=== PATIENT | female | born 1965 | race Caucasian/White ===

== ENCOUNTER 2018-02-05 00:51 | Outpatient (CLI) | payer MEDICARE, MEDICAID, SELFPAY ==
--- NOTE | 2018-02-05 09:00 | DI.US_ITS ---
SYMPTOMS/DIAGNOSIS: RLQ PAIN, S/P HYSTERECTOMY, R10.31 PELVIC ULTRASOUND: A transabdominal and transvaginal examination was carried out. The patient is status post hysterectomy and right oophorectomy. The left ovary measures 2.4 x 0.9 x 2 cm. The kidneys are intact. The left kidney measures 10.6 cm. The right kidney 9.5 cm. SUMMARY: The patient is status post hysterectomy. Nonvisualization of the right ovary is noted and this patient may well have had a right oophorectomy. The left ovary is normal. There is no evidence of a pelvic mass or fluid collection.
== END 2018-02-05 01:11 ==
PROVIDERS: PCP Physician Assistant Medical; Visit Provider Obstetrics & Gynecology Gynecology
DX: R10.31 Right lower quadrant pain (principal); Z90.710 Acquired absence of both cervix and uterus
CPT/HCPCS: 76830; 76856

== ENCOUNTER → 2018-05-19 12:19 | Outpatient (BNVA) | payer MEDICARE, MEDICAID, SELFPAY | PROVIDERS: PCP Physician Assistant Medical; Visit Provider Nurse Practitioner Adult Health | DX: H55.09 Other forms of nystagmus (principal); R41.3 Other amnesia | CPT/HCPCS: 99204; 99215 ==

== ENCOUNTER → 2018-06-11 08:19 | Outpatient (BNVA) | payer MEDICARE, MEDICAID, SELFPAY | PROVIDERS: PCP Physician Assistant Medical; Visit Provider Psychiatry & Neurology Neurology | DX: H55.09 Other forms of nystagmus (principal); G31.84 Mild cognitive impairment of uncertain or unknown etiology; R26.89 Other abnormalities of gait and mobility | CPT/HCPCS: 99213; 99214 ==

== ENCOUNTER 2018-06-11 09:21 | Outpatient (CLI) | payer MEDICARE, MEDICAID, SELFPAY ==
[2018-06-12 12:40] LABS: Zinc, Serum 0.81 mcg/mL (0.66-1.10)
[2018-06-15 09:23] LABS: Vitamin E, Serum 9.8 mg/L (5.5 - 17.0)
[2018-06-18 22:23] LABS: AGNA-1 Negative titer (<1:240); ANNA-1 Negative titer (<1:240); ANNA-2 Negative titer (<1:240); ANNA-3 Negative titer (<1:240); PCA-1 Negative titer (<1:240); PCA-2 Negative titer (<1:240); PCA-Tr Negative titer (<1:240); Striational (Striated Muscle) Negative titer (<1:120)
== END 2018-06-11 09:41 ==
PROVIDERS: PCP Physician Assistant Medical; Visit Provider Psychiatry & Neurology Neurology
DX: H55.09 Other forms of nystagmus (principal); T56 Toxic effect of metals; G31.84 Mild cognitive impairment of uncertain or unknown etiology; R26.89 Other abnormalities of gait and mobility
CPT/HCPCS: 36415; 86341; 99213; 99214; 83519; 83520; 84446; 84630; 86256

== ENCOUNTER 2018-07-23 09:52 | Outpatient (CLI) | payer MEDICARE, MEDICAID, SELFPAY ==
[2018-08-18 09:06] LABS: Misc Referral (MAYO) See Comments
== END 2018-07-23 10:12 ==
PROVIDERS: PCP Physician Assistant Medical; Visit Provider Psychiatry & Neurology Neurology
DX: R27.0 Ataxia, unspecified (principal); H55.09 Other forms of nystagmus
CPT/HCPCS: 36415; 81401

== ENCOUNTER → 2018-08-13 09:14 | Outpatient (BNVA) | payer MEDICARE, MEDICAID, SELFPAY | PROVIDERS: PCP Physician Assistant Medical; Visit Provider Psychiatry & Neurology Neurology | DX: H55.09 Other forms of nystagmus (principal) | CPT/HCPCS: 99213 ==

== ENCOUNTER → 2018-10-22 14:35 | Outpatient (BNVA) | payer MEDICARE, SELFPAY | PROVIDERS: PCP Physician Assistant Medical; Visit Provider Psychiatry & Neurology Neurology | DX: H55.09 Other forms of nystagmus (principal) | CPT/HCPCS: 99214 ==

== ENCOUNTER → 2018-12-22 14:00 | Outpatient (BNVA) | payer MEDICARE, MEDICAID, SELFPAY | PROVIDERS: PCP Physician Assistant Medical; Referring Provider Physician Assistant Medical; Visit Provider Psychiatry & Neurology Neurology | DX: H55.09 Other forms of nystagmus (principal); R63.4 Abnormal weight loss | CPT/HCPCS: 99213 ==

== ENCOUNTER 2019-02-26 12:37 | Day surgery (SDC) | payer MEDICARE, MEDICAID, SELFPAY ==
--- NOTE | 2019-01-12 16:47 | PDOC.ANES ---
Date of service: 01/12/19 Time of Service: 16:47 Anesthesia Note Report Anesthesia Note: I was asked to speak to Love given her recent phone conversation where she had stated to the preop nurse that she has episodes if chest pressure/heaviness that is substernal. She has this a few times a month and can not say for certain if this occurs at rest or with exertion. She does state there is no radiation, shortness of breath, diaphoresis or nausea and vomiting. These episodes seem to last for a period of minutes and then resolve. She states it is different than her GERD symptoms and that she also was recently diagnosed with COPD this Spring, although she does not have SOB or use inhalers with her COPD. She also states that she is functionally active taking long walks with dog, and frequently using stairs to access her house and did shovel lots of snow the other day with no symptoms. I confirmed this with a phone call today with Love and then spoke to her PCP, Rukhsana Manley in [facility] who advised she will see patient tomorrow and or have the patient see cardiology and report back a plan prior to her scheduled procedure this week.
--- NOTE | 2019-02-26 10:22 | HPE_ITS ---
Date of service: 02/26/19 Time of Service: 10:23 Assessment and Plan Assessment and plan (1) Preop examination: Status: Acute Assessment and plan: Pt was previously counseled regarding risks of procedure at the time of her preop visit last month. Risk of bleeding, infection, and damage to surrounding structures including bowel, bladder and blood vessels. If pt has bleeding or damage to surrounding structures she would require a laparotomy. Informed consent was obtained. Her questions were answered. History of Present Illness History of Present Illness Chief Complaint: intermittent right lower quadrant pain Narrative: Patient is a 53-year-old G0 female who presents in f/u for recurrent RLQ pain. Patient has decided to have surgical evaluation for her right lower quadrant discomfort. The pain that she experiences acute last anywhere from half an hour to an hour and is disabling. Not associated with change of bowel bladder function. GynHx -Right lower quadrant discomfort was present after her 2016 hysterectomy and RSO. Her discomfort subsided and she contacted me in December 2017 with a recurrence of sharp right lower quadrant pain not associated with GI changes. Pain is relieved with Aleve and has never lasted for more than an hour often times lasts for matter of minutes. Imaging studies performed in December 2017 showed a normal-appearing left ovary with an absent right adnexa absent uterus. -Genital herpes. Recent outbreak. Review of Systems Constitutional Constitutional: Reports as per HPI and Reports lethargy ENT Ears, Nose, Mouth, and Throat: Reports vertigo (improved.) Cardiovascular Comments: Pt underwent eval with answering service telephone operator for hx of vague chest pain. Cardiology gave her clearance for surgery. No restrictions. Respiratory Respiratory: Reports as per HPI and Reports system reviewed and no additional complaints, except as docu Gastrointestinal Gastrointestinal: Denies abdominal pain (RLQ pain) Genitourinary Genitourinary: Reports pelvic pain (RLQ.) and Reports vaginal discharge (ocassionally malodorous) Musculoskeletal Musculoskeletal: Reports system reviewed and no additional complaints, except as docu Integumentary/Breasts Skin/Breast: Reports system reviewed and no additional complaints, except as docu Neurologic Neurologic: Reports vertigo (improved.) and Reports other visual disturbances (nystagmus) Endocrine Endocrine: Reports system reviewed and no additional complaints, except as docu [facility] Medical History Abdominal pain (Acute) RLQ +/- pain after hysterectomy and R oophorectomy. L ovary remains. Anxiety (Chronic) Bipolar disorder (Chronic) Hx of suicide attempt 2010. 1985/2010/2012/2017 psych inpt. Has counselor and psych provider for meds. BV (bacterial vaginosis) (Resolved) Episode prior to and after her hysterectomy. Successfully treated with metronidazole. Depression (Chronic) Genital herpes (Resolved) 2015. IgG +. vulvar cx by PCP. GERD (gastroesophageal reflux disease) (Chronic) s/p EGD [place] adverse reaction (Chronic) Downward nystagmus. Stopped lithium and now using Depakote. Tobacco use (Chronic) Vertigo (Resolved) Surgical History biopsy of thyroid (Inactive) 2006. Cervical Procedure (Resolved ~2004) colposcopy Dilation and curettage (Resolved 03/17/15) For bleeding after 2007 Endometrial Ablation. Finding: uterine synechiae. EGD - IV Sedation (Resolved) 2010, 2013. Neg bx. Endometrial Ablation (Resolved ~2007) [facility]. Dr. Martha espino eye surgery (Inactive) 2000 Ligation of fallopian tube (Resolved) Tonsillectomy and adenoidectomy (Inactive) as a child. Vaginal hysterectomy (Inactive 11/10/15) [facility]. RSO. L salpingectomy. Pt's R ovary remains. Family History Mother Heart disease s/p open heart surgery Father , 2018. Prostate CA. No problems noted. Social History Smoking/Tobacco Use Status: Current every day Tobacco Type: cigarettes Years smoked: 39 Alcohol Intake: never Drug use: Daily Substance use type: marijuana Details: Patient is decreasing marijuana use Household members: family and other Details: Lives at home with her parents. 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 Sexually active: No Seatbelt use: always Do you feel safe at home: Yes Female Reproductive History Menstrual Menopause type: surgical History History 1 Para Hx # Term Pregnancies 0 Multiple births Hx # Pregnancies Ectopic pregnancies AB induced Hx Number of Living Children AB spontaneous Meds Home Medications and Allergies Home Medications Medication Instructions Recorded Confirmed Type cholecalciferol (vitamin D3) 2,000 unit PO DAILY 01/04/15 02/26/19 History [Vitamin D3] glucosam-chond [id number] ac 1 ea PO BID 01/04/15 02/26/19 History ascorbic acid (vitamin C) 1,000 mg PO DAILY 03/15/15 02/26/19 History omega-3 fatty acids-fish oil [Fish 1,000 ea PO DAILY 03/15/15 02/26/19 History Oil 1,000 Mg Capsule] multivitamin 1 tab PO DAILY 03/18/18 02/26/19 History Lactobacillus acidophilus 1.5 mg 100 mmu cells PO DAILY 05/19/18 02/26/19 History (250 million cell) capsule estradiol 1 gm VG DAILY #42.5 gm 06/18/18 02/26/19 Rx alprazolam 0.5 mg tablet 0.5 mg PO .QD PRN tab 07/23/18 01/12/19 History dalfampridine 10 mg 8 mg PO BID #1 tab 12/22/18 12/29/18 Rx tablet,extended release,12 hr divalproex 500 mg tablet,extended 500 mg PO BID tab 12/22/18 02/26/19 History release 24 hr lithium carbonate 450 mg 450 mg PO HS 12/22/18 02/26/19 History tablet,extended release pantoprazole 40 mg tablet,delayed 40 mg PO DAILY 12/22/18 02/26/19 History release valacyclovir 500 mg tablet 500 mg PO BID #6 tab-cap 02/16/19 Rx Allergies Allergy/AdvReac Type Severity Reaction Status Date / Time No Known Allergies Allergy Unverified 02/26/19 12:52 Exam Const General: no acute distress Nutritional Appearance: average body habitus Orientation: alert, awake and oriented x3 Neck Neck: normal visual inspection Thyroid: thyroid normal Resp Effort & Inspection: normal respiratory effort Auscultation: clear to auscultation bilaterally Cardio Rate: regular rate Rhythm: regular rhythm General: bimanual renal exam normal bilaterally and deferred Skin General skin exam: no rashes or lesions noted Extrem General: normal to inspection Psych Appearance: grossly normal Mental Status: mental status grossly normal Mood: congruent mood Results Labs Result diagrams: 02/26/19 12:57
[2019-02-26 12:58] VITALS: BP 109/71; PULSE 54; RESP 18; TEMP 36.7; O2SAT 99
[2019-02-26] MEDS: Lactated Ringers 1,000 ML 125 ML IV (13:14)
[2019-02-26 13:23] LABS: HCT 38.6 % (36.0-46.0); HGB 12.5 g/dL (12.0-15.5); Mean Corp. HGB Concentration 32.4 g/dL (32.0-36.0); Mean Corpuscular Hemoglobin 31.8 pg (27.0-33.0); Mean Corpuscular Volume 98.2 fL (80-95); Mean Platelet Volume 10.1 fL (8.0-11.0); Platelet Count 179 x1000/uL (130-400); RBC 3.93 m/cumm (4.00-5.20); White Blood Cell Count 4.93 k/cumm (4.4-10.8)
[2019-02-26] MEDS: Bupivacaine 0.25% Pres-Free 30 ML VIAL (15:00)
--- NOTE | 2019-02-26 15:20 | OVAR_PTH ---
PATIENT: Love Denise LOC: [facility] U#:[id number] AGE/SX: 53/F ROOM: RE02/26/[address]: Bhavani Hallman : 1965 BED: DIS: 02/26/2019 SPEC #: [id number] RECD: 02/26/19 17:23 STATUS: AURA REQ #: [id number] PATTI: 02/26/19 15:[address]: Bhavani Hallman DEPT: Surgical Specimen RECD BY: Sulma Harper ENTERED: 02/26/19 17:23 SP TYPE: OVAR MARY DR: Jazmyne Manley Tissues: 1 - OVARY NOT TUMOR W OR W/O TUBES Procedures: GROSS AND MICRO LEVEL 4 Comments: [id number]
[2019-02-26 15:43] VITALS: BP 111/70; PULSE 56; RESP 20; TEMP 36.4; O2SAT 97
[2019-02-26 15:48] VITALS: BP 115/69; PULSE 52; RESP 21; TEMP 36.5; O2SAT 97
[2019-02-26 15:53] VITALS: BP 102/64; PULSE 53; RESP 21; TEMP 36.5; O2SAT 97
[2019-02-26] MEDS: fentaNYL 100 MCG/2 ML VIAL IVP (16:00)
[2019-02-26 16:05] VITALS: BP 106/66; PULSE 51; RESP 14; TEMP 36.5; O2SAT 979
[2019-02-26 17:05] VITALS: BP 102/64; PULSE 55; RESP 18; TEMP 36; O2SAT 100
--- NOTE | 2019-02-26 19:34 | ROE_ITS ---
Date of service: 02/26/19 Time of Service: 19:34 Operative Note Operative Note DATE OF PROCEDURE: 02/26/19 PRE-OP DIAGNOSIS: Right lower quadrant pain POST-OP DIAGNOSIS: same PROCEDURE: Laparoscopic left salpingo-oophorectomy. Lysis of right-sided pelvic adhesion. SURGEON: Bhavani Hallman HOME HEALTH ADMINISTRATOR: Placido Adamson ANESTHESIA: GETA ESTIMATED BLOOD LOSS: 0 PATHOLOGY: other (Left ovary and fallopian tube) COMPLICATIONS: None Patient was transported to: PACU Patient's condition: stable Indications: Patient is a 53-year-old G0 female with onset of sharp intermittent RLQ pain shortly after a laparoscopic-assisted vaginal hysterectomy in 2016. Imaging studies showed absent right adnexa normal appearing left adnexa. Findings: Normal-appearing upper abdomen and appendix. Single tubular band of tissue between the right pelvic sidewall and the serosa of the small intestine. No evidence of other adhesions or right adnexal abnormalities. Left fallopian tube remnant and left ovary appeared normal. Solitary Filshie clip in the posterior cul-de-sac and other Filshie clip was adherent to the small intestine and covered with thin layer of serosa. The free Filshie clip was retrieved and removed. The adherent Filshie clip was left in place. Procedure Description: Description of procedure patient was taken to the operating room was placed in the dorsal supine position and general endotracheal anesthesia was administered without difficulty. SCDs were in place [place] catheter was inserted to gravity drainage and she was prepped and draped in the usual sterile fashion. Surgical timeout was performed. Attention was turned to the patient's abdomen where the inferior aspect of the umbilicus was infiltrated with quarter percent Marcaine without epinephrine. Scalpel was used to incise the umbilicus in a vertical fashion. Under ultrasound guidance a varies needle attached to carbon dioxide flow was inserted through the umbilical incision into the abdomen with and observe drop in the intra-abdominal pressure. After pneumoperitoneum was established the Veress needle was removed and a 10 mm Visiport was placed through the umbilical incision into the abdomen. The previous laparoscopic incision sites were infiltrated with quarter percent Marcaine and incision made with a scalpel in the right and lower quadrants respectively Under direct visualization a 5 mm short trocar and sleeve was placed through the right and left lower quadrant incision sites. The patient was then placed in Trendelenburg and the abdomen was carefully inspected with the above-noted findings. The Filshie clip was located and removed from the posterior cul-de-sac. A LigaSure electrocautery device was used to incise the adhesion and the right lower quadrant. There right pelvic sidewall ureter and blood vessels all appeared normal. The left adnexa was grasped and the LigaSure electrocautery device was used to cauterize and incise the left infundibulopelvic ligament followed by a left mesosalpinx. The left adnexa was placed in the posterior cul-de-sac a 10 mm Endo Catch bag was inserted into the abdomen and the specimen placed in the Endo Catch bag and delivered through the umbilical incision without difficulty. Final inspection was performed of the pelvis. The left adnexa was hemostatic as was the site of the lysis of the pelvic adhesion. Under direct visualization both 5 mm lower trochars were removed and the trocar sites noted to be h emostatic. The laparoscope was removed and pneumoperitoneum deflated and the umbilical port removed. Rectus fascia was tented up with [place] clamps and 2 interrupted sutures of 0 Vicryl were used to close the rectus fascia. The skin of the umbilical and left lower quadrant port incisions was reapproximated with subcuticular closure of 4-0 Monocryl. Subcutaneous closure of all trocar sites was performed using skin glue. The sites dressed with Band-Aids. Row[place] catheter was removed with clear tila urine observed in the [place] bag. Patient was awakened extubated and transported recovery area in stable condition all sponge lap needle counts correct x2
== END 2019-02-26 17:30 | disposition home or self-care (01) ==
PROVIDERS: PCP Physician Assistant Medical; Visit Provider Obstetrics & Gynecology Gynecology
PROC: (CPT 58661; principal; 2019-02-26 14:00)
DX: R10.31 Right lower quadrant pain (principal); K21.9 Gastro-esophageal reflux disease without esophagitis; F17.210 Nicotine dependence, cigarettes, uncomplicated; Z90.79 Acquired absence of other genital organ(s); Z90.710 Acquired absence of both cervix and uterus; Z90.721 Acquired absence of ovaries, unilateral
CPT/HCPCS: 58661; 36415; 85027; 86850; 86900; 86901; 88305; NC; J1100; J1885; J2001; J2250; J2405; J2704; J3010

== ENCOUNTER 2021-11-06 03:02 | Outpatient (RCR) | payer OTHER, MEDICAID, SELFPAY ==
[2021-10-30] MEDS: Normal Saline Flush 10 ML SYR IVP (10:10)
[2021-10-30 10:20] LABS: Abs Immature Grans 0.02 10^3/uL (0.0-0.06); Absolute Basophil Count 0.06 10^3/uL (0.0-0.2); Absolute Lymphocyte Count 0.86 10^3/uL (1.2-3.4); Absolute Monocyte Count 0.52 10^3/uL (0.1-0.8); Absolute Neutrophil Count 2.99 10^3/uL (1.2-6.7); Basophils % 1.3; Eosinophils % 4.3; HCT 34.5 % (36.0-46.0); HGB 11.1 g/dL (11.2-15.7); Immature Grans % 0.4; Lymphocytes % 18.5; MCH 28.5 pg (27.0-33.0); MCHC 32.2 % (32.0-36.0); MCV 89 fL (80-95); MPV 8.9 fL (8.0-11.0); Monocytes % 11.2; Neutrophils % 64.3; Platelet Count 271 10^3/uL (130-400); RDW 16.7 % (11.7-14.6); RDW-SD 53.6 fL; WBC 4.65 10^3/uL (4.4-10.8)
[2021-10-30 10:40] LABS: ALT 16 U/L (14-59); AST 14 U/L (15-37); Albumin 3.5 g/dL (3.4-5.0); Alkaline Phosphatase 102 U/L (46-116); Anion Gap 4.5 mmol/L (3-11); BUN 17 mg/dL (7-18); Bilirubin, Total 0.2 mg/dL (0.2-1.0); CO2 30.5 mmol/L (21.0-32.0); Chloride 104 mmol/L (98-107); Estimated GFR 66.12 (mL/min/1.73m2); Glucose 86 mg/dL (74-106); Magnesium 1.8 mg/dL (1.8-2.4); Potassium 4.8 mmol/L (3.5-5.1); Sodium 139 mmol/L (136-145); Total Protein 7.6 g/dL (6.4-8.2)
[2021-10-30 12:33] LABS: FREE T4 1.06 ng/dL (0.76-1.46); TSH 0.86 uIU/mL (0.36-3.74)
[2021-11-06] MEDS: Normal Saline Flush 10 ML SYR IVP (09:15)
[2021-11-06 09:33] LABS: Abs Immature Grans 0.01 10^3/uL (0.0-0.06); Absolute Basophil Count 0.04 10^3/uL (0.0-0.2); Absolute Lymphocyte Count 0.76 10^3/uL (1.2-3.4); Absolute Monocyte Count 0.22 10^3/uL (0.1-0.8); Absolute Neutrophil Count 1.84 10^3/uL (1.2-6.7); Basophils % 1.3; Eosinophils % 3.4; HCT 33.1 % (36.0-46.0); Immature Grans % 0.3; Lymphocytes % 25.6; MCH 28.6 pg (27.0-33.0); MCHC 33.2 % (32.0-36.0); MCV 86 fL (80-95); MPV 9.2 fL (8.0-11.0); Monocytes % 7.4; Platelet Count 274 10^3/uL (130-400); RBC 3.84 10^6/uL (3.93-5.22); RDW 16.7 % (11.7-14.6); RDW-SD 52.6 fL; WBC 2.97 10^3/uL (4.4-10.8)
[2021-11-06 10:12] LABS: ALT 18 U/L (14-59); AST 18 U/L (15-37); Albumin 3.6 g/dL (3.4-5.0); Alkaline Phosphatase 102 U/L (46-116); Anion Gap 7.5 mmol/L (3-11); BUN 19 mg/dL (7-18); Bilirubin, Total 0.2 mg/dL (0.2-1.0); CO2 27.5 mmol/L (21.0-32.0); CREATININE 0.7 mg/dL (0.55-1.02); Calcium 9.3 mg/dL (8.5-10.1); Chloride 104 mmol/L (98-107); Estimated GFR 101.44 (mL/min/1.73m2); FREE T4 0.99 ng/dL (0.76-1.46); Glucose 78 mg/dL (74-106); Magnesium 1.7 mg/dL (1.8-2.4); Potassium 4.5 mmol/L (3.5-5.1); Sodium 139 mmol/L (136-145); TSH 0.75 uIU/mL (0.36-3.74); Total Protein 7.7 g/dL (6.4-8.2)
== END 2021-11-17 23:59 | disposition home or self-care (01) ==
LOC: INF 03:02
PROVIDERS: PCP Physician Assistant Medical; Visit Provider Internal Medicine Medical Oncology
DX: C34.90 Malignant neoplasm of unspecified part of unspecified bronchus or lung (principal); C77.8 Secondary and unspecified malignant neoplasm of lymph nodes of multiple regions; Z45.2 Encounter for adjustment and management of vascular access device
CPT/HCPCS: 36591; 80053; 83735; 84439; 84443; 85025

== ENCOUNTER 2021-12-18 02:37 | Outpatient (RCR) | payer OTHER, MEDICAID, SELFPAY ==
[2021-11-20] MEDS: Normal Saline Flush 10 ML SYR IVP (10:06)
[2021-11-20 10:17] LABS: Abs Immature Grans 0.04 10^3/uL (0.0-0.06); Absolute Eosinophil Count 0.03 10^3/uL (0.0-0.7); Absolute Lymphocyte Count 0.96 10^3/uL (1.2-3.4); Absolute Monocyte Count 0.68 10^3/uL (0.1-0.8); Absolute Neutrophil Count 2.28 10^3/uL (1.2-6.7); Basophils % 2.4; Eosinophils % 0.7; HCT 33.9 % (36.0-46.0); HGB 11.1 g/dL (11.2-15.7); Lymphocytes % 23.5; MCH 28.5 pg (27.0-33.0); MCHC 32.7 % (32.0-36.0); MCV 87 fL (80-95); MPV 8.2 fL (8.0-11.0); Monocytes % 16.6; Neutrophils % 55.8; Platelet Count 211 10^3/uL (130-400); RBC 3.89 10^6/uL (3.93-5.22); RDW 17.8 % (11.7-14.6); RDW-SD 55.6 fL; WBC 4.09 10^3/uL (4.4-10.8)
[2021-11-20 10:40] LABS: ALT 19 U/L (14-59); AST 18 U/L (15-37); Albumin 3.9 g/dL (3.4-5.0); Alkaline Phosphatase 99 U/L (46-116); Anion Gap 6.7 mmol/L (3-11); BUN 16 mg/dL (7-18); Bilirubin, Total 0.2 mg/dL (0.2-1.0); CO2 29.3 mmol/L (21.0-32.0); CREATININE 0.9 mg/dL (0.55-1.02); Calcium 9.5 mg/dL (8.5-10.1); Chloride 104 mmol/L (98-107); Estimated GFR 75.03 (mL/min/1.73m2); Glucose 95 mg/dL (74-106); LDH 160 U/L (81-234); Magnesium 1.8 mg/dL (1.8-2.4); Potassium 4.3 mmol/L (3.5-5.1); Sodium 140 mmol/L (136-145); TSH 1.17 uIU/mL (0.36-3.74)
[2021-11-20 10:41] LABS: FREE T4 0.93 ng/dL (0.76-1.46)
[2021-11-27] MEDS: Normal Saline Flush 10 ML SYR IVP (07:15)
[2021-11-27 07:31] LABS: Abs Immature Grans 0.02 10^3/uL (0.0-0.06); Absolute Basophil Count 0.04 10^3/uL (0.0-0.2); Absolute Eosinophil Count 0.04 10^3/uL (0.0-0.7); Absolute Lymphocyte Count 0.82 10^3/uL (1.2-3.4); Absolute Monocyte Count 0.24 10^3/uL (0.1-0.8); Absolute Neutrophil Count 2.15 10^3/uL (1.2-6.7); Basophils % 1.2; Eosinophils % 1.2; HCT 31.1 % (36.0-46.0); HGB 10.3 g/dL (11.2-15.7); Immature Grans % 0.6; Lymphocytes % 24.8; MCH 28.9 pg (27.0-33.0); MCHC 33.1 % (32.0-36.0); MCV 87 fL (80-95); Monocytes % 7.3; Neutrophils % 64.9; Platelet Count 164 10^3/uL (130-400); RBC 3.57 10^6/uL (3.93-5.22); RDW 17.6 % (11.7-14.6); RDW-SD 56.5 fL; WBC 3.31 10^3/uL (4.4-10.8)
[2021-11-27 07:54] LABS: ALT 20 U/L (14-59); AST 19 U/L (15-37); Albumin 3.7 g/dL (3.4-5.0); Alkaline Phosphatase 90 U/L (46-116); Anion Gap 6.4 mmol/L (3-11); BUN 21 mg/dL (7-18); Bilirubin, Total 0.1 mg/dL (0.2-1.0); CO2 28.6 mmol/L (21.0-32.0); CREATININE 0.8 mg/dL (0.55-1.02); Calcium 9.3 mg/dL (8.5-10.1); Chloride 103 mmol/L (98-107); Estimated GFR 86.42 (mL/min/1.73m2); Glucose 100 mg/dL (74-106); Potassium 4.2 mmol/L (3.5-5.1); Sodium 138 mmol/L (136-145); Total Protein 7.5 g/dL (6.4-8.2)
[2021-12-11] MEDS: Normal Saline Flush 10 ML SYR IVP (10:05)
[2021-12-11 10:21] LABS: Abs Immature Grans 0.03 10^3/uL (0.0-0.06); Absolute Basophil Count 0.05 10^3/uL (0.0-0.2); Absolute Eosinophil Count 0.02 10^3/uL (0.0-0.7); Absolute Lymphocyte Count 1.06 10^3/uL (1.2-3.4); Absolute Monocyte Count 0.62 10^3/uL (0.1-0.8); Absolute Neutrophil Count 2.16 10^3/uL (1.2-6.7); Basophils % 1.3; Eosinophils % 0.5; HCT 31.7 % (36.0-46.0); HGB 10.6 g/dL (11.2-15.7); Immature Grans % 0.8; Lymphocytes % 26.9; MCH 29.4 pg (27.0-33.0); MCHC 33.4 % (32.0-36.0); MCV 88 fL (80-95); MPV 8.8 fL (8.0-11.0); Monocytes % 15.7; Neutrophils % 54.8; Platelet Count 241 10^3/uL (130-400); RBC 3.61 10^6/uL (3.93-5.22); RDW 19.6 % (11.7-14.6); RDW-SD 62.6 fL; WBC 3.94 10^3/uL (4.4-10.8)
[2021-12-11 10:52] LABS: ALT 24 U/L (14-59); AST 18 U/L (15-37); Albumin 3.6 g/dL (3.4-5.0); Alkaline Phosphatase 84 U/L (46-116); Anion Gap 7.3 mmol/L (3-11); BUN 12 mg/dL (7-18); Bilirubin, Total 0.1 mg/dL (0.2-1.0); CO2 27.7 mmol/L (21.0-32.0); Calcium 8.8 mg/dL (8.5-10.1); Chloride 105 mmol/L (98-107); Estimated GFR 66.12 (mL/min/1.73m2); FREE T4 0.97 ng/dL (0.76-1.46); Glucose 103 mg/dL (74-106); LDH 175 U/L (81-234); Magnesium 1.9 mg/dL (1.8-2.4); Potassium 4.2 mmol/L (3.5-5.1); Sodium 140 mmol/L (136-145); TSH 0.79 uIU/mL (0.36-3.74); Total Protein 7.4 g/dL (6.4-8.2)
[2021-12-18 08:18] LABS: Abs Immature Grans 0.01 10^3/uL (0.0-0.06); Absolute Basophil Count 0.04 10^3/uL (0.0-0.2); Absolute Eosinophil Count 0.03 10^3/uL (0.0-0.7); Absolute Lymphocyte Count 0.77 10^3/uL (1.2-3.4); Absolute Monocyte Count 0.26 10^3/uL (0.1-0.8); Absolute Neutrophil Count 1.56 10^3/uL (1.2-6.7); Basophils % 1.5; Eosinophils % 1.1; HCT 30.8 % (36.0-46.0); HGB 10.3 g/dL (11.2-15.7); Immature Grans % 0.4; Lymphocytes % 28.8; MCH 29.6 pg (27.0-33.0); MCHC 33.4 % (32.0-36.0); MCV 89 fL (80-95); MPV 8.7 fL (8.0-11.0); Monocytes % 9.7; Neutrophils % 58.5; Platelet Count 198 10^3/uL (130-400); RBC 3.48 10^6/uL (3.93-5.22); RDW 19.1 % (11.7-14.6); RDW-SD 62.3 fL; WBC 2.67 10^3/uL (4.4-10.8)
[2021-12-18] MEDS: Normal Saline Flush 10 ML SYR IVP (08:24)
[2021-12-18 08:40] LABS: ALT 18 U/L (14-59); AST 17 U/L (15-37); Albumin 3.6 g/dL (3.4-5.0); Alkaline Phosphatase 87 U/L (46-116); Anion Gap 6.5 mmol/L (3-11); BUN 17 mg/dL (7-18); Bilirubin, Total 0.2 mg/dL (0.2-1.0); CO2 27.5 mmol/L (21.0-32.0); CREATININE 0.9 mg/dL (0.55-1.02); Calcium 9.2 mg/dL (8.5-10.1); Chloride 104 mmol/L (98-107); Estimated GFR 75.03 (mL/min/1.73m2); Glucose 124 mg/dL (74-106); Potassium 4.3 mmol/L (3.5-5.1); Sodium 138 mmol/L (136-145); Total Protein 7.4 g/dL (6.4-8.2)
== END 2021-12-18 23:59 | disposition home or self-care (01) ==
LOC: INF 02:37
PROVIDERS: PCP Physician Assistant Medical; Visit Provider Internal Medicine Medical Oncology
DX: C80.1 Malignant (primary) neoplasm, unspecified (principal); Z45.2 Encounter for adjustment and management of vascular access device
CPT/HCPCS: 36591; 80053; 83615; 83735; 84439; 84443; 85025

== ENCOUNTER 2022-01-01 03:41 | Outpatient (RCR) | payer OTHER, MEDICAID, SELFPAY ==
[2022-01-01] MEDS: Normal Saline Flush 10 ML SYR IVP (08:42)
[2022-01-01 09:03] LABS: Abs Immature Grans 0.03 10^3/uL (0.0-0.06); Absolute Basophil Count 0.06 10^3/uL (0.0-0.2); Absolute Eosinophil Count 0.03 10^3/uL (0.0-0.7); Absolute Lymphocyte Count 0.84 10^3/uL (1.2-3.4); Absolute Monocyte Count 0.61 10^3/uL (0.1-0.8); Absolute Neutrophil Count 1.58 10^3/uL (1.2-6.7); Basophils % 1.9; HGB 10.5 g/dL (11.2-15.7); Lymphocytes % 26.7; MCH 30.4 pg (27.0-33.0); MCHC 33.9 % (32.0-36.0); MCV 90 fL (80-95); MPV 8.6 fL (8.0-11.0); Monocytes % 19.4; Platelet Count 203 10^3/uL (130-400); RBC 3.45 10^6/uL (3.93-5.22); RDW 19.7 % (11.7-14.6); RDW-SD 65.8 fL; WBC 3.15 10^3/uL (4.4-10.8)
[2022-01-01 09:31] LABS: ALT 18 U/L (14-59); AST 17 U/L (15-37); Albumin 3.7 g/dL (3.4-5.0); Alkaline Phosphatase 92 U/L (46-116); BUN 19 mg/dL (7-18); Bilirubin, Total 0.2 mg/dL (0.2-1.0); CREATININE 0.9 mg/dL (0.55-1.02); Calcium 9.3 mg/dL (8.5-10.1); Chloride 106 mmol/L (98-107); Estimated GFR 75.03 (mL/min/1.73m2); FREE T4 0.96 ng/dL (0.76-1.46); Glucose 111 mg/dL (74-106); LDH 178 U/L (81-234); Magnesium 1.8 mg/dL (1.8-2.4); Potassium 4.2 mmol/L (3.5-5.1); Sodium 142 mmol/L (136-145); TSH 0.97 uIU/mL (0.36-3.74); Total Protein 7.6 g/dL (6.4-8.2)
== END 2022-01-17 23:59 | disposition home or self-care (01) ==
LOC: INF 03:41
PROVIDERS: PCP Physician Assistant Medical; Visit Provider Internal Medicine Medical Oncology
DX: C34.90 Malignant neoplasm of unspecified part of unspecified bronchus or lung (principal); C80.1 Malignant (primary) neoplasm, unspecified; Z45.2 Encounter for adjustment and management of vascular access device
CPT/HCPCS: 36591; 80053; 83615; 83735; 84439; 84443; 85025

== ENCOUNTER 2022-02-13 03:22 | Outpatient (RCR) | payer OTHER, MEDICAID, SELFPAY ==
[2022-01-22] MEDS: Normal Saline Flush 10 ML SYR IVP (09:56)
[2022-01-22 10:08] LABS: Abs Immature Grans 0.02 10^3/uL (0.0-0.06); Absolute Basophil Count 0.06 10^3/uL (0.0-0.2); Absolute Eosinophil Count 0.16 10^3/uL (0.0-0.7); Absolute Lymphocyte Count 1.08 10^3/uL (1.2-3.4); Absolute Monocyte Count 0.62 10^3/uL (0.1-0.8); Absolute Neutrophil Count 2.56 10^3/uL (1.2-6.7); Basophils % 1.3; Eosinophils % 3.6; HCT 32.2 % (36.0-46.0); HGB 10.8 g/dL (11.2-15.7); Immature Grans % 0.4; MCH 31.9 pg (27.0-33.0); MCHC 33.5 % (32.0-36.0); MCV 95 fL (80-95); MPV 8.4 fL (8.0-11.0); Monocytes % 13.8; Neutrophils % 56.9; Platelet Count 341 10^3/uL (130-400); RBC 3.39 10^6/uL (3.93-5.22); RDW 17.2 % (11.7-14.6); RDW-SD 60.4 fL
[2022-01-22 10:33] LABS: ALT 16 U/L (14-59); AST 19 U/L (15-37); Albumin 3.6 g/dL (3.4-5.0); Alkaline Phosphatase 101 U/L (46-116); Anion Gap 6.9 mmol/L (3-11); BUN 15 mg/dL (7-18); Bilirubin, Total 0.3 mg/dL (0.2-1.0); CO2 29.1 mmol/L (21.0-32.0); CREATININE 0.9 mg/dL (0.55-1.02); Calcium 9.3 mg/dL (8.5-10.1); Chloride 105 mmol/L (98-107); Estimated GFR 75.03 (mL/min/1.73m2); FREE T4 0.94 ng/dL (0.76-1.46); Glucose 108 mg/dL (74-106); LDH 158 U/L (81-234); Magnesium 1.8 mg/dL (1.8-2.4); Potassium 4.4 mmol/L (3.5-5.1); Sodium 141 mmol/L (136-145); Total Protein 7.7 g/dL (6.4-8.2)
[2022-02-13] MEDS: Normal Saline Flush 10 ML SYR IVP (09:16)
[2022-02-13 09:24] LABS: Abs Immature Grans 0.03 10^3/uL (0.0-0.06); Absolute Eosinophil Count 0.19 10^3/uL (0.0-0.7); Absolute Lymphocyte Count 0.96 10^3/uL (1.2-3.4); Absolute Monocyte Count 0.66 10^3/uL (0.1-0.8); Absolute Neutrophil Count 4.01 10^3/uL (1.2-6.7); Basophils % 1.7; Eosinophils % 3.2; HCT 34.3 % (36.0-46.0); HGB 11.3 g/dL (11.2-15.7); Immature Grans % 0.5; Lymphocytes % 16.1; MCH 32.2 pg (27.0-33.0); MCHC 32.9 % (32.0-36.0); MCV 98 fL (80-95); MPV 8.7 fL (8.0-11.0); Monocytes % 11.1; Neutrophils % 67.4; Platelet Count 318 10^3/uL (130-400); RBC 3.51 10^6/uL (3.93-5.22); RDW-SD 50.3 fL; WBC 5.95 10^3/uL (4.4-10.8)
[2022-02-13 09:53] LABS: ALT 18 U/L (14-59); AST 18 U/L (15-37); Albumin 3.7 g/dL (3.4-5.0); Alkaline Phosphatase 109 U/L (46-116); Anion Gap 6.8 mmol/L (3-11); BUN 21 mg/dL (7-18); Bilirubin, Total 0.2 mg/dL (0.2-1.0); CO2 28.2 mmol/L (21.0-32.0); Calcium 9.4 mg/dL (8.5-10.1); Chloride 105 mmol/L (98-107); Estimated GFR 66.12 (mL/min/1.73m2); FREE T4 0.99 ng/dL (0.76-1.46); Glucose 99 mg/dL (74-106); Magnesium 1.9 mg/dL (1.8-2.4); Potassium 4.2 mmol/L (3.5-5.1); Sodium 140 mmol/L (136-145); TSH 1.12 uIU/mL (0.36-3.74); Total Protein 8.1 g/dL (6.4-8.2)
== END 2022-02-17 23:59 | disposition home or self-care (01) ==
LOC: INF 03:22
PROVIDERS: PCP Physician Assistant Medical; Visit Provider Internal Medicine Medical Oncology
DX: C80.1 Malignant (primary) neoplasm, unspecified (principal); Z45.2 Encounter for adjustment and management of vascular access device; I31.8 Other specified diseases of pericardium; C34.90 Malignant neoplasm of unspecified part of unspecified bronchus or lung; C77.8 Secondary and unspecified malignant neoplasm of lymph nodes of multiple regions; C78.5 Secondary malignant neoplasm of large intestine and rectum; Z79.899 Other long term (current) drug therapy
CPT/HCPCS: 36591; 80053; 83615; 83735; 84439; 84443; 85025

== ENCOUNTER 2022-03-05 02:43 | Outpatient (RCR) | payer OTHER, MEDICAID, SELFPAY ==
[2022-03-05] MEDS: Normal Saline Flush 10 ML SYR IVP (09:57)
[2022-03-05 10:20] LABS: Abs Immature Grans 0.02 10^3/uL (0.0-0.06); Absolute Basophil Count 0.07 10^3/uL (0.0-0.2); Absolute Eosinophil Count 0.17 10^3/uL (0.0-0.7); Absolute Lymphocyte Count 0.93 10^3/uL (1.2-3.4); Absolute Monocyte Count 0.65 10^3/uL (0.1-0.8); Basophils % 1.3; Eosinophils % 3.2; HCT 31.9 % (36.0-46.0); HGB 10.8 g/dL (11.2-15.7); Immature Grans % 0.4; Lymphocytes % 17.7; MCH 32.7 pg (27.0-33.0); MCHC 33.9 % (32.0-36.0); MCV 97 fL (80-95); MPV 8.7 fL (8.0-11.0); Monocytes % 12.4; Platelet Count 302 10^3/uL (130-400); RDW 12.4 % (11.7-14.6); RDW-SD 43.9 fL; WBC 5.24 10^3/uL (4.4-10.8)
[2022-03-05 10:51] LABS: ALT 15 U/L (14-59); AST 20 U/L (15-37); Albumin 3.5 g/dL (3.4-5.0); Alkaline Phosphatase 106 U/L (46-116); Anion Gap 4.6 mmol/L (3-11); BUN 17 mg/dL (7-18); Bilirubin, Total 0.2 mg/dL (0.2-1.0); CO2 29.4 mmol/L (21.0-32.0); CREATININE 0.9 mg/dL (0.55-1.02); Calcium 9.3 mg/dL (8.5-10.1); Chloride 104 mmol/L (98-107); Estimated GFR 75.03 (mL/min/1.73m2); FREE T4 1.08 ng/dL (0.76-1.46); Glucose 87 mg/dL (74-106); Magnesium 1.9 mg/dL (1.8-2.4); Potassium 4.1 mmol/L (3.5-5.1); Sodium 138 mmol/L (136-145); Total Protein 7.7 g/dL (6.4-8.2)
== END 2022-03-20 23:59 | disposition home or self-care (01) ==
LOC: INF 02:43
PROVIDERS: PCP Physician Assistant Medical; Visit Provider Internal Medicine Medical Oncology
DX: C80.1 Malignant (primary) neoplasm, unspecified (principal); I31.8 Other specified diseases of pericardium; C34.90 Malignant neoplasm of unspecified part of unspecified bronchus or lung; C77.8 Secondary and unspecified malignant neoplasm of lymph nodes of multiple regions; Z45.2 Encounter for adjustment and management of vascular access device
CPT/HCPCS: 36591; 80053; 83735; 84439; 84443; 85025

== ENCOUNTER 2022-04-16 02:00 | Outpatient (RCR) | payer OTHER, MEDICAID, SELFPAY ==
[2022-03-26 09:43] LABS: Abs Immature Grans 0.04 10^3/uL (0.0-0.06); Absolute Basophil Count 0.07 10^3/uL (0.0-0.2); Absolute Eosinophil Count 0.12 10^3/uL (0.0-0.7); Absolute Lymphocyte Count 0.94 10^3/uL (1.2-3.4); Absolute Monocyte Count 0.71 10^3/uL (0.1-0.8); Absolute Neutrophil Count 5.41 10^3/uL (1.2-6.7); Eosinophils % 1.6; HCT 35.3 % (36.0-46.0); HGB 11.6 g/dL (11.2-15.7); Immature Grans % 0.5; Lymphocytes % 12.9; MCH 31.4 pg (27.0-33.0); MCHC 32.9 % (32.0-36.0); MCV 96 fL (80-95); MPV 8.5 fL (8.0-11.0); Monocytes % 9.7; Neutrophils % 74.3; Platelet Count 391 10^3/uL (130-400); RBC 3.69 10^6/uL (3.93-5.22); RDW 11.9 % (11.7-14.6); RDW-SD 41.5 fL; WBC 7.29 10^3/uL (4.4-10.8)
[2022-03-26 10:23] LABS: ALT 15 U/L (14-59); AST 18 U/L (15-37); Albumin 3.6 g/dL (3.4-5.0); Alkaline Phosphatase 116 U/L (46-116); Anion Gap 8.6 mmol/L (3-11); BUN 20 mg/dL (7-18); Bilirubin, Total 0.2 mg/dL (0.2-1.0); CO2 27.4 mmol/L (21.0-32.0); CREATININE 1.2 mg/dL (0.55-1.02); Calcium 9.9 mg/dL (8.5-10.1); Chloride 103 mmol/L (98-107); Estimated GFR 53.13 (mL/min/1.73m2); FREE T4 0.99 ng/dL (0.76-1.46); Glucose 121 mg/dL (74-106); Magnesium 1.9 mg/dL (1.8-2.4); Potassium 4.4 mmol/L (3.5-5.1); Sodium 139 mmol/L (136-145); TSH 1.09 uIU/mL (0.36-3.74)
[2022-03-26] MEDS: Normal Saline Flush 10 ML SYR IVP (10:52)
[2022-04-02] MEDS: Normal Saline Flush 10 ML SYR IVP (12:20)
[2022-04-02 12:27] LABS: Abs Immature Grans 0.01 10^3/uL (0.0-0.06); Absolute Basophil Count 0.03 10^3/uL (0.0-0.2); Absolute Eosinophil Count 0.04 10^3/uL (0.0-0.7); Absolute Lymphocyte Count 0.89 10^3/uL (1.2-3.4); Absolute Monocyte Count 0.44 10^3/uL (0.1-0.8); Absolute Neutrophil Count 1.09 10^3/uL (1.2-6.7); Basophils % 1.2; Eosinophils % 1.6; HCT 32.3 % (36.0-46.0); HGB 10.6 g/dL (11.2-15.7); Immature Grans % 0.4; Lymphocytes % 35.6; MCH 30.9 pg (27.0-33.0); MCHC 32.8 % (32.0-36.0); MCV 94 fL (80-95); MPV 8.4 fL (8.0-11.0); Monocytes % 17.6; Neutrophils % 43.6; Platelet Count 230 10^3/uL (130-400); RBC 3.43 10^6/uL (3.93-5.22); RDW 11.5 % (11.7-14.6); RDW-SD 39.7 fL
[2022-04-02 13:05] LABS: ALT 20 U/L (14-59); AST 20 U/L (15-37); Albumin 3.5 g/dL (3.4-5.0); Alkaline Phosphatase 112 U/L (46-116); Anion Gap 6.4 mmol/L (3-11); BUN 18 mg/dL (7-18); Bilirubin, Total 0.1 mg/dL (0.2-1.0); CO2 27.6 mmol/L (21.0-32.0); CREATININE 0.9 mg/dL (0.55-1.02); Calcium 9.8 mg/dL (8.5-10.1); Chloride 104 mmol/L (98-107); Estimated GFR 75.03 (mL/min/1.73m2); FREE T4 1.06 ng/dL (0.76-1.46); Glucose 90 mg/dL (74-106); Potassium 4.4 mmol/L (3.5-5.1); Sodium 138 mmol/L (136-145); TSH 1.17 uIU/mL (0.36-3.74); Total Protein 7.9 g/dL (6.4-8.2)
[2022-04-16] MEDS: Normal Saline Flush 10 ML SYR IVP (09:52)
[2022-04-16 10:11] LABS: Abs Immature Grans 0.02 10^3/uL (0.0-0.06); Absolute Basophil Count 0.05 10^3/uL (0.0-0.2); Absolute Eosinophil Count 0.05 10^3/uL (0.0-0.7); Absolute Lymphocyte Count 0.85 10^3/uL (1.2-3.4); Absolute Monocyte Count 0.79 10^3/uL (0.1-0.8); HCT 32.3 % (36.0-46.0); HGB 10.7 g/dL (11.2-15.7); Immature Grans % 0.4; Lymphocytes % 16.8; MCH 31.2 pg (27.0-33.0); MCHC 33.1 % (32.0-36.0); MCV 94 fL (80-95); MPV 8.7 fL (8.0-11.0); Monocytes % 15.6; Neutrophils % 65.2; Platelet Count 500 10^3/uL (130-400); RBC 3.43 10^6/uL (3.93-5.22); RDW 12.7 % (11.7-14.6); RDW-SD 42.1 fL; WBC 5.06 10^3/uL (4.4-10.8)
[2022-04-16 10:28] LABS: ALT 18 U/L (14-59); AST 16 U/L (15-37); Albumin 3.6 g/dL (3.4-5.0); Alkaline Phosphatase 117 U/L (46-116); Anion Gap 6.4 mmol/L (3-11); BUN 15 mg/dL (7-18); Bilirubin, Total 0.2 mg/dL (0.2-1.0); CO2 27.6 mmol/L (21.0-32.0); Calcium 9.5 mg/dL (8.5-10.1); Chloride 104 mmol/L (98-107); Estimated GFR 66.12 (mL/min/1.73m2); Glucose 95 mg/dL (74-106); Potassium 4.3 mmol/L (3.5-5.1); Sodium 138 mmol/L (136-145); TSH 0.98 uIU/mL (0.36-3.74); Total Protein 7.8 g/dL (6.4-8.2)
== END 2022-04-17 23:59 | disposition home or self-care (01) ==
LOC: INF 02:00
PROVIDERS: PCP Physician Assistant Medical; Visit Provider Internal Medicine Medical Oncology
DX: C34.90 Malignant neoplasm of unspecified part of unspecified bronchus or lung (principal); C80.1 Malignant (primary) neoplasm, unspecified; I31.8 Other specified diseases of pericardium; Z45.2 Encounter for adjustment and management of vascular access device; C77.8 Secondary and unspecified malignant neoplasm of lymph nodes of multiple regions; C78.5 Secondary malignant neoplasm of large intestine and rectum; Z79.899 Other long term (current) drug therapy
CPT/HCPCS: 36591; 80053; 83735; 84439; 84443; 85025

== ENCOUNTER 2022-05-07 03:39 | Outpatient (RCR) | payer OTHER, MEDICAID, SELFPAY ==
[2022-04-23 09:34] LABS: Abs Immature Grans 0.02 10^3/uL (0.0-0.06); Absolute Basophil Count 0.04 10^3/uL (0.0-0.2); Absolute Eosinophil Count 0.02 10^3/uL (0.0-0.7); Absolute Lymphocyte Count 0.89 10^3/uL (1.2-3.4); Absolute Monocyte Count 0.71 10^3/uL (0.1-0.8); Absolute Neutrophil Count 1.05 10^3/uL (1.2-6.7); Basophils % 1.5; Eosinophils % 0.7; HCT 31.3 % (36.0-46.0); HGB 10.5 g/dL (11.2-15.7); Immature Grans % 0.7; Lymphocytes % 32.6; MCH 31.5 pg (27.0-33.0); MCHC 33.5 % (32.0-36.0); MCV 94 fL (80-95); MPV 8.1 fL (8.0-11.0); Neutrophils % 38.5; Platelet Count 360 10^3/uL (130-400); RBC 3.33 10^6/uL (3.93-5.22); RDW 12.7 % (11.7-14.6); RDW-SD 42.8 fL; WBC 2.73 10^3/uL (4.4-10.8)
[2022-04-23 09:56] LABS: ALT 18 U/L (14-59); AST 15 U/L (15-37); Albumin 3.4 g/dL (3.4-5.0); Alkaline Phosphatase 115 U/L (46-116); Anion Gap 8.7 mmol/L (3-11); BUN 16 mg/dL (7-18); Bilirubin, Total 0.2 mg/dL (0.2-1.0); CO2 27.3 mmol/L (21.0-32.0); CREATININE 0.9 mg/dL (0.55-1.02); Calcium 9.3 mg/dL (8.5-10.1); Chloride 106 mmol/L (98-107); Estimated GFR 75.03 (mL/min/1.73m2); Glucose 86 mg/dL (74-106); Potassium 4.4 mmol/L (3.5-5.1); Sodium 142 mmol/L (136-145); TSH 0.88 uIU/mL (0.36-3.74); Total Protein 7.7 g/dL (6.4-8.2)
[2022-04-23] MEDS: Normal Saline Flush 10 ML SYR IVP (09:57)
[2022-05-07] MEDS: Normal Saline Flush 10 ML SYR IVP (12:17)
[2022-05-07 12:36] LABS: Abs Immature Grans 0.06 10^3/uL (0.0-0.06); Absolute Basophil Count 0.05 10^3/uL (0.0-0.2); Absolute Eosinophil Count 0.05 10^3/uL (0.0-0.7); Absolute Lymphocyte Count 0.91 10^3/uL (1.2-3.4); Absolute Monocyte Count 0.98 10^3/uL (0.1-0.8); Absolute Neutrophil Count 6.01 10^3/uL (1.2-6.7); Basophils % 0.6; Eosinophils % 0.6; HCT 31.5 % (36.0-46.0); HGB 10.6 g/dL (11.2-15.7); Immature Grans % 0.7; Lymphocytes % 11.3; MCH 31.4 pg (27.0-33.0); MCHC 33.7 % (32.0-36.0); MCV 93 fL (80-95); MPV 8.8 fL (8.0-11.0); Monocytes % 12.2; Neutrophils % 74.6; Platelet Count 480 10^3/uL (130-400); RBC 3.38 10^6/uL (3.93-5.22); RDW 14.2 % (11.7-14.6); RDW-SD 46.1 fL; WBC 8.06 10^3/uL (4.4-10.8)
[2022-05-07 13:10] LABS: ALT 21 U/L (14-59); AST 17 U/L (15-37); Albumin 3.5 g/dL (3.4-5.0); Alkaline Phosphatase 107 U/L (46-116); BUN 14 mg/dL (7-18); Bilirubin, Total 0.3 mg/dL (0.2-1.0); CREATININE 0.9 mg/dL (0.55-1.02); Calcium 9.5 mg/dL (8.5-10.1); Chloride 105 mmol/L (98-107); Estimated GFR 75.03 (mL/min/1.73m2); Glucose 91 mg/dL (74-106); Potassium 4.3 mmol/L (3.5-5.1); Sodium 140 mmol/L (136-145); TSH 0.98 uIU/mL (0.36-3.74); Total Protein 7.9 g/dL (6.4-8.2)
== END 2022-05-18 23:59 | disposition home or self-care (01) ==
LOC: INF 03:39
PROVIDERS: PCP Physician Assistant Medical; Visit Provider Internal Medicine Medical Oncology
DX: R53.83 Other fatigue (principal); C32.9 Malignant neoplasm of larynx, unspecified; C77.8 Secondary and unspecified malignant neoplasm of lymph nodes of multiple regions; Z45.2 Encounter for adjustment and management of vascular access device
CPT/HCPCS: 36591; 80053; 84439; 84443; 85025

== ENCOUNTER 2022-06-04 01:26 | Outpatient (RCR) | payer OTHER, MEDICAID, SELFPAY ==
[2022-05-21] MEDS: Normal Saline Flush 10 ML SYR IVP (11:36)
[2022-05-21 11:45] LABS: Abs Immature Grans 0.06 10^3/uL (0.0-0.06); Absolute Basophil Count 0.08 10^3/uL (0.0-0.2); Absolute Eosinophil Count 0.14 10^3/uL (0.0-0.7); Absolute Lymphocyte Count 0.98 10^3/uL (1.2-3.4); Absolute Monocyte Count 0.86 10^3/uL (0.1-0.8); Absolute Neutrophil Count 4.41 10^3/uL (1.2-6.7); Basophils % 1.2; Eosinophils % 2.1; HCT 32.6 % (36.0-46.0); Immature Grans % 0.9; MCH 31.3 pg (27.0-33.0); MCHC 33.7 % (32.0-36.0); MCV 93 fL (80-95); MPV 8.4 fL (8.0-11.0); Monocytes % 13.2; Neutrophils % 67.6; Platelet Count 288 10^3/uL (130-400); RBC 3.52 10^6/uL (3.93-5.22); RDW 14.7 % (11.7-14.6); RDW-SD 49.3 fL; WBC 6.53 10^3/uL (4.4-10.8)
[2022-05-21 12:15] LABS: ALT 17 U/L (14-59); AST 16 U/L (15-37); Albumin 3.4 g/dL (3.4-5.0); Alkaline Phosphatase 115 U/L (46-116); Anion Gap 9.7 mmol/L (3-11); BUN 12 mg/dL (7-18); Bilirubin, Total 0.2 mg/dL (0.2-1.0); CO2 26.3 mmol/L (21.0-32.0); Calcium 9.5 mg/dL (8.5-10.1); Chloride 104 mmol/L (98-107); Estimated GFR 66.12 (mL/min/1.73m2); FREE T4 1.08 ng/dL (0.76-1.46); Glucose 128 mg/dL (74-106); Sodium 140 mmol/L (136-145); TSH 1.01 uIU/mL (0.36-3.74); Total Protein 7.8 g/dL (6.4-8.2)
[2022-06-04] MEDS: Normal Saline Flush 10 ML SYR IVP (10:28)
[2022-06-04 10:42] LABS: Abs Immature Grans 0.05 10^3/uL (0.0-0.06); Absolute Basophil Count 0.09 10^3/uL (0.0-0.2); Absolute Lymphocyte Count 0.81 10^3/uL (1.2-3.4); Absolute Monocyte Count 0.95 10^3/uL (0.1-0.8); Absolute Neutrophil Count 5.08 10^3/uL (1.2-6.7); Basophils % 1.3; Eosinophils % 1.4; HCT 31.7 % (36.0-46.0); HGB 10.6 g/dL (11.2-15.7); Immature Grans % 0.7; Lymphocytes % 11.4; MCH 31.2 pg (27.0-33.0); MCHC 33.4 % (32.0-36.0); MCV 93 fL (80-95); MPV 8.6 fL (8.0-11.0); Monocytes % 13.4; Neutrophils % 71.8; Platelet Count 394 10^3/uL (130-400); RDW 15.4 % (11.7-14.6); RDW-SD 51.8 fL; WBC 7.08 10^3/uL (4.4-10.8)
[2022-06-04 11:05] LABS: ALT 19 U/L (14-59); AST 16 U/L (15-37); Albumin 3.4 g/dL (3.4-5.0); Alkaline Phosphatase 115 U/L (46-116); Anion Gap 6.9 mmol/L (3-11); BUN 11 mg/dL (7-18); Bilirubin, Total 0.2 mg/dL (0.2-1.0); CO2 27.1 mmol/L (21.0-32.0); CREATININE 0.9 mg/dL (0.55-1.02); Calcium 9.5 mg/dL (8.5-10.1); Chloride 107 mmol/L (98-107); Estimated GFR 74.57 (mL/min/1.73m2); FREE T4 1.07 ng/dL (0.76-1.46); Glucose 92 mg/dL (74-106); Potassium 4.5 mmol/L (3.5-5.1); Sodium 141 mmol/L (136-145); TSH 1.08 uIU/mL (0.36-3.74); Total Protein 7.7 g/dL (6.4-8.2)
== END 2022-06-17 23:59 | disposition home or self-care (01) ==
LOC: INF 01:26
PROVIDERS: PCP Physician Assistant Medical; Visit Provider Internal Medicine Medical Oncology
DX: I31.8 Other specified diseases of pericardium (principal); C77.8 Secondary and unspecified malignant neoplasm of lymph nodes of multiple regions; Z45.2 Encounter for adjustment and management of vascular access device; C34.90 Malignant neoplasm of unspecified part of unspecified bronchus or lung; C80.0 Disseminated malignant neoplasm, unspecified; Z79.899 Other long term (current) drug therapy
CPT/HCPCS: 36591; 80053; 84439; 84443; 85025

== ENCOUNTER 2022-07-02 01:53 | Outpatient (RCR) | payer OTHER, MEDICAID, SELFPAY ==
[2022-06-18] MEDS: Normal Saline Flush 10 ML SYR IVP (10:59)
[2022-06-18 11:05] LABS: Abs Immature Grans 0.06 10^3/uL (0.0-0.06); Absolute Basophil Count 0.07 10^3/uL (0.0-0.2); Absolute Lymphocyte Count 0.85 10^3/uL (1.2-3.4); Absolute Monocyte Count 0.98 10^3/uL (0.1-0.8); Absolute Neutrophil Count 4.61 10^3/uL (1.2-6.7); Eosinophils % 1.5; HCT 31.2 % (36.0-46.0); HGB 10.3 g/dL (11.2-15.7); Immature Grans % 0.9; Lymphocytes % 12.7; MCH 30.9 pg (27.0-33.0); MCV 94 fL (80-95); MPV 8.7 fL (8.0-11.0); Monocytes % 14.7; Neutrophils % 69.2; Platelet Count 326 10^3/uL (130-400); RBC 3.33 10^6/uL (3.93-5.22); RDW 15.7 % (11.7-14.6); RDW-SD 53.4 fL; WBC 6.67 10^3/uL (4.4-10.8)
[2022-06-18 11:20] LABS: ALT 27 U/L (14-59); AST 17 U/L (15-37); Albumin 3.2 g/dL (3.4-5.0); Alkaline Phosphatase 118 U/L (46-116); BUN 14 mg/dL (7-18); Bilirubin, Total 0.3 mg/dL (0.2-1.0); CREATININE 0.9 mg/dL (0.55-1.02); Calcium 9.1 mg/dL (8.5-10.1); Chloride 108 mmol/L (98-107); Estimated GFR 74.57 (mL/min/1.73m2); Glucose 97 mg/dL (74-106); Magnesium 1.8 mg/dL (1.8-2.4); Potassium 4.4 mmol/L (3.5-5.1); Sodium 140 mmol/L (136-145); Total Protein 7.6 g/dL (6.4-8.2)
== END 2022-07-18 23:59 | disposition home or self-care (01) ==
LOC: INF 01:53
PROVIDERS: PCP Physician Assistant Medical; Visit Provider Internal Medicine Medical Oncology
DX: C80.1 Malignant (primary) neoplasm, unspecified (principal); C34.90 Malignant neoplasm of unspecified part of unspecified bronchus or lung; C77.8 Secondary and unspecified malignant neoplasm of lymph nodes of multiple regions; I31.8 Other specified diseases of pericardium; Z45.2 Encounter for adjustment and management of vascular access device
CPT/HCPCS: 36591; 80053; 83735; 85025